=== PATIENT | male | born 1950 | race African-American/Black ===

== ENCOUNTER 2020-03-24 12:28 | Outpatient (CLI) | payer MEDICARE ==
--- NOTE | 2020-03-24 13:52 | ULT ---
BILATERAL UPPER EXTREMITY VEIN MAPPING: Date: 03/24/2020 HISTORY: End-stage renal disease; evaluate for dialysis access. FINDINGS: RIGHT UPPER EXTREMITY CEPHALIC VEIN Proximal Arm: 2.1 mm Mid Arm: 2.3 mm Distal Arm: 1.6 mm Antecubital Fossa: 1.4 mm Proximal Forearm: 1.6 mm Mid Forearm: 1.6 mm Distal Forearm: 1.1 mm BASILIC VEIN Proximal Arm: 8.6 mm Mid Arm: 7.1 mm Distal Arm: 5.3 mm Antecubital Fossa: 1.7 mm Proximal Forearm: 1.0 mm Mid Forearm: 0.8 mm Distal Forearm: 0.8 mm LEFT UPPER EXTREMITY CEPHALIC VEIN Proximal Arm: 3.6 mm Mid Arm: 2.4 mm Distal Arm: 2.6 mm Antecubital Fossa: 2.5 mm Proximal Forearm: 3.6 mm Mid Forearm: 2.4 mm Distal Forearm: 1.6 mm BASILIC VEIN Proximal Arm: 6.1 mm Mid Arm: 4.6 mm Distal Arm: 5.5 mm Antecubital Fossa: 3.5 mm Proximal Forearm: 1.6 mm Mid Forearm: 0.9 mm Distal Forearm: 0.8 mm RIGHT BRACHIAL ARTERY: 6.6 mm RIGHT RADIAL ARTERY: 3.0 mm RIGHT ULNAR ARTERY: 2.9 mm LEFT BRACHIAL ARTERY: 5.2 mm LEFT RADIAL ARTERY: 3.0 mm LEFT ULNAR ARTERY: 2.2 mm IMPRESSION: Vein mapping as above. POS: [facility]
== END 2020-03-24 12:29 | disposition home or self-care (01) ==
LOC: BICULT 12:28
PROVIDERS: ATTEND Internal Medicine
DX: Z01.818 Encounter for other preprocedural examination (principal); N18.6 End stage renal disease
CPT/HCPCS: 93970